=== PATIENT | female | born 1995 | race Caucasian/White ===

== ENCOUNTER 2022-03-08 00:22 | Inpatient (IN) | payer MEDICAID ==
[~2022-03-08 00:22] MED LIST: Bupivacaine 0.25% 10 ML SDV ONE
[2022-03-08] MEDS ORDERED: Nalbuphine HCl 10 MG/ 1ML Amp IVPUSH PRN (00:57)
[2022-03-08] MEDS ORDERED: Ampicillin 2 GM in Sodium Chloride 0.9% 100 ML IV ONE (00:57)
[2022-03-08] MEDS ORDERED: Ondansetron 4 MG/2 ML SDV IVPUSH PRN (00:57)
[2022-03-08] MEDS ORDERED: Oxytocin/Lactated Ringers 10 UNIT/1,000 ML BAG IV SCH (01:00)
[2022-03-08] MEDS: Calcium Carbonate 500 MG Tab.Chew PO PRN ×2 (01:24→05:33)
[2022-03-08] MEDS: Lactated Ringers 1,000 ML IV SCH ×2 (01:24→02:53)
[2022-03-08] MEDS ORDERED: ePHEDrine 50 MG/ML SDV IVPUSH PRN (01:39)
[2022-03-08] MEDS ORDERED: diphenhydrAMINE 50 MG/ML SDV IVPUSH PRN (01:39)
[2022-03-08] MEDS ORDERED: Bupivacaine/fentaNYL/NS 100 ML Bag EPIDUR PRN (01:39)
[2022-03-08] MEDS ORDERED: fentaNYL 100 MCG/2 ML SDV EPIDUR PRN (01:39)
[2022-03-08] MEDS: Ampicillin 1 GM in Sodium Chloride 0.9% 100 ML IV SCH ×2 (05:33→10:00)
[2022-03-08] MEDS ORDERED: Ibuprofen 600 MG Tab PO PRN (10:07)
[2022-03-08] MEDS ORDERED: Witch Hazel Medicated Pads 40/Jar TOP PRN ×2 (10:08→11:10)
[2022-03-08] MEDS ORDERED: Benzocaine/Menthol 20%-0.5% Spray 78 GM Cannister TOP PRN ×2 (10:08→11:10)
[2022-03-08] MEDS: Ibuprofen 600 MG Tab PO PRN ×2 (12:17→16:50)
[2022-03-08] MEDS: Acetaminophen 325 MG Tab PO PRN (22:30)
[2022-03-09] MEDS: Ibuprofen 600 MG Tab PO PRN ×4 (04:30→20:16)
[2022-03-09] MEDS: Prenatal Multivitamin with Calcium/Folic Acid/Iron Tab PO SCH (08:34)
[2022-03-09] MEDS ORDERED: Ondansetron 4 MG Tab.DIS PO PRN (10:53)
[2022-03-09] MEDS: Acetaminophen 325 MG Tab PO PRN ×2 (15:51→20:16)
[2022-03-09] MEDS: Docusate Sodium 100 MG Cap PO PRN (20:16)
[2022-03-10] MEDS: Ibuprofen 600 MG Tab PO PRN ×3 (03:08→11:10)
[2022-03-10] MEDS: Acetaminophen 325 MG Tab PO PRN ×3 (03:09→11:09)
[2022-03-10] MEDS: Prenatal Multivitamin with Calcium/Folic Acid/Iron Tab PO SCH (10:21)
[2022-03-10] MEDS: Docusate Sodium 100 MG Cap PO PRN (10:21)
== END 2022-03-10 12:20 | disposition home or self-care (01) | DRG 807 ==
LOC: JD.OB 00:22 → OBSVTOIN 06:50 → JD.OB 06:51
PROVIDERS: ADMIT Obstetrics & Gynecology; ATTEND Obstetrics & Gynecology
PROC: 10E0XZZ Delivery of Products of Conception, External Approach (ICD-10-PCS; principal; 2022-03-08)
PROC: 10907ZC Drainage of Amniotic Fluid, Therapeutic from Products of Conception, Via Natural or Artificial Opening (ICD-10-PCS; 2022-03-08)
PROC: 3E0R3BZ Introduction of Anesthetic Agent into Spinal Canal, Percutaneous Approach (ICD-10-PCS; 2022-03-08)
DX: O99.824 Streptococcus B carrier state complicating childbirth (principal); Z37.0 Single live birth; O70.0 First degree perineal laceration during delivery; Z3A.39 39 weeks gestation of pregnancy; Z90.49 Acquired absence of other specified parts of digestive tract
CPT/HCPCS: 01967; 36415; 51702; 59025; 59409; 85025; 86592; 86850; 86900; 86901; A9270-GY; J0290; J2405; J2590; J3010; J3490; J7120

== ENCOUNTER 2023-04-21 10:45 | Inpatient (IN) | payer BC ==
[~2023-04-21 10:45] MED LIST changes: +Lidocaine 1% 10 ML MDV ONE
[2023-04-21] MEDS ORDERED: Nalbuphine HCl 10 MG/ 1ML Amp IVPUSH PRN (10:55)
[2023-04-21] MEDS ORDERED: Sodium Chloride 0.9% 10 ML Syringe FLUSH PRN (10:55)
[2023-04-21] MEDS ORDERED: Lidocaine 1% 50 ML MDV INJECT PRN (10:55)
[2023-04-21] MEDS ORDERED: Oxytocin/Lactated Ringers 30 UNIT/500 ML BAG IV SCH (11:00)
[2023-04-21 11:18] LABS: BASOPHILS PERCENT AUTO 0.3 % (0.0-1.0); EOSINOPHILS ABSOLUTE AUTO 0.1 K/mm3 (0.0-0.4); EOSINOPHILS PERCENT AUTO 0.7 % (0.0-6.0); HEMATOCRIT 33.4 % (37.0-47.0); HEMOGLOBIN 10.6 gm/dl (12.0-16.0); IMMATURE GRAN ABSOLUTE AUTO 0.06 K/mm3 (0.00-0.05); IMMATURE GRAN PERCENT AUTO 0.6 % (0.0-0.4); LYMPHOCYTES PERCENT AUTO 20.1 % (24.0-44.0); MEAN CORPUSCULAR HEMOGLOBIN 26.7 pg (28.0-32.0); MEAN CORPUSCULAR HGB CONC 31.7 g/dl (32.0-36.0); MEAN CORPUSCULAR VOLUME 84.1 fl (83.0-99.0); MEAN PLATELET VOLUME 9.8 fl (9.4-12.3); MONOCYTES ABSOLUTE AUTO 0.4 K/mm3 (0.0-0.8); MONOCYTES PERCENT AUTO 4.1 % (0.0-8.0); NEUTROPHILS ABSOLUTE AUTO 7.2 K/mm3 (1.8-7.7); NEUTROPHILS PERCENT AUTO 74.2 % (41.0-71.0); PLATELET COUNT,PLT 254 K/mm3 (150-400); RED BLOOD CELL COUNT 3.97 M/mm3 (4.10-5.30); WHITE BLOOD CELL COUNT,WBC 9.71 K/mm3 (3.9-11.3)
[2023-04-21] MEDS ORDERED: Ampicillin 2 GM in Sodium Chloride 0.9% 100 ML IV ONE (11:30)
[2023-04-21] MEDS: Lactated Ringers 1,000 ML IV SCH ×2 (11:43→15:24)
[2023-04-21] MEDS ORDERED: fentaNYL 100 MCG/2 ML SDV EPIDUR PRN (13:19)
[2023-04-21] MEDS ORDERED: ePHEDrine 50 MG/ML SDV IVPUSH PRN (13:19)
[2023-04-21] MEDS ORDERED: diphenhydrAMINE 50 MG/ML SDV IVPUSH PRN (13:19)
[2023-04-21] MEDS ORDERED: Bupivacaine/fentaNYL/NS 100 ML Bag EPIDUR PRN (13:19)
[2023-04-21] MEDS ORDERED: Ampicillin 1 GM in Sodium Chloride 0.9% 100 ML IV SCH (15:30)
[2023-04-21] MEDS ORDERED: Docusate Sodium 100 MG Cap PO PRN (19:13)
[2023-04-21] MEDS ORDERED: Witch Hazel Medicated Pads 40/Jar TOP PRN (19:13)
[2023-04-21] MEDS ORDERED: Benzocaine/Menthol 20%-0.5% Spray 78 GM Cannister TOP PRN (19:13)
[2023-04-21] MEDS: Acetaminophen 325 MG Tab PO PRN (20:27)
[2023-04-21] MEDS ORDERED: Sodium Chloride 0.9% 10 ML Syringe FLUSH SCH (21:00)
[2023-04-22] MEDS: Ibuprofen 600 MG Tab PO PRN ×3 (04:20→19:30)
[2023-04-22] MEDS: Acetaminophen 325 MG Tab PO PRN ×2 (08:04→13:34)
[2023-04-23] MEDS: Ibuprofen 600 MG Tab PO PRN ×2 (02:30→11:13)
== END 2023-04-23 11:55 | disposition home or self-care (01) | DRG 560 ==
LOC: JD.OB 10:45 → OBSVTOIN 18:40 → JD.OB 18:41
PROVIDERS: ADMIT Obstetrics & Gynecology; ATTEND Obstetrics & Gynecology
PROC: 10E0XZZ Delivery of Products of Conception, External Approach (ICD-10-PCS; principal; 2023-04-21)
PROC: 10907ZC Drainage of Amniotic Fluid, Therapeutic from Products of Conception, Via Natural or Artificial Opening (ICD-10-PCS; 2023-04-21)
PROC: 0KQM0ZZ Repair Perineum Muscle, Open Approach (ICD-10-PCS; 2023-04-21)
PROC: 3E033VJ Introduction of Other Hormone into Peripheral Vein, Percutaneous Approach (ICD-10-PCS; 2023-04-21)
PROC: 3E0R3BZ Introduction of Anesthetic Agent into Spinal Canal, Percutaneous Approach (ICD-10-PCS; 2023-04-21)
PROC: 00HU33Z Insertion of Infusion Device into Spinal Canal, Percutaneous Approach (ICD-10-PCS; 2023-04-21)
DX: O99.824 Streptococcus B carrier state complicating childbirth (principal); Z37.0 Single live birth; Z3A.39 39 weeks gestation of pregnancy; O70.1 Second degree perineal laceration during delivery
CPT/HCPCS: 36415; 51702; 59025; 59409; 85025; 86592; A9270-GY; J0290; J3010; J3490; J7120; J7999